=== PATIENT | female | born 1955 | race Two or more races ===

== ENCOUNTER → 2024-05-22 | Outpatient (CLI) | payer MEDICARE, BC, SELFPAY ==
[2024-05-22 14:15] LABS: Collection Type, Urine Clean Catch
[2024-05-22 14:37] LABS: Basophils # (Auto) 0.1 Thou/mm3 (0.0-0.2); Basophils % (Auto) 1 % (0-2.5); Eosinophils % (Auto) 0 % (0-10); Hemoglobin 13.9 g/dL (12.0-16.0); Immature Granulocytes % (Auto) 0 % (0-0); Immature Granulocytes Auto 0.03 Thou/mm3 (0.00-0.00); Lymphocytes # (Auto) 3.6 Thou/mm3 (1.0-4.8); Lymphocytes % (Auto) 38 % (10-50); Mean Corpuscular HGB Conc 33.1 g/dl (31.0-37.0); Mean Corpuscular Hemoglobin 30.8 pg (25.0-35.0); Mean Corpuscular Volume 93 fL (80-100); Monocytes # (Auto) 0.6 Thou/mm3 (0.0-0.8); Monocytes % (Auto) 6 % (0-12); Neutrophils # (Auto) 5.2 Thou/mm3 (1.8-7.7); Neutrophils % (Auto) 55 % (37-80); Nucleated Red Blood Cell % 0 /100 WBC (0); Platelet Count 307 Thou/mm3 (140-440); RDW Standard Deviation 45.4 fL (36.4-46.3); Red Blood Count 4.52 Miln/mm3 (4.00-5.20); White Blood Count 9.5 Thou/mm3 (3.6-11.0)
[2024-05-22 14:48] LABS: Glucose Estimated Average 103 mg/dL (80-131); Hemoglobin A1C 5.2 % Hgb (4.8-6.0)
[2024-05-22 14:50] LABS: Bacteria,Urine 4+; Bilirubin,Urine Negative (Negative); Blood,Urine 1+ (Negative); Color,Urine Yellow (Lt Yel-Yel); Glucose, Urine Negative (Negative); Ketones,Urine Negative (Negative); Leukocyte Esterase,Urine Positive (Negative); Nitrite,Urine Negative (Negative); PH,Urine 6.5 (5.0-7.0); Protein,Urine 1+ (Neg - Trace); RBC,Urine 9 /hpf (0-3); Specific Gravity,Urine 1.023 (1.001-1.035); Squamous Epithelial Cell,Urine 20 /hpf (0-5); Urobilinogen,Urine Negative mg/dL (0.0-1.0); WBC,Urine 58 /hpf (0-5)
[2024-05-22 14:51] LABS: Clarity,Urine Hazy (Clear/Hazy)
[2024-05-22 14:56] LABS: Alanine Aminotransferase 15 U/L (10-49); Albumin, Serum 4.1 gm/dL (3.4-4.8); Albumin/Globulin Ratio 1.7 (1.2-2.2); Alkaline Phosphatase 151 U/L (46-116); Anion Gap 8 (7-16); BUN/Creatinine Ratio 19 Ratio (12-20); Bilirubin,Total 0.4 mg/dL (0.3-1.2); Blood Urea Nitrogen 26 mg/dL (9-23); Calcium 10.1 mg/dL (8.3-10.6); Calcium (Corrected) 10.1 mg/dL (8.5-10.1); Carbon Dioxide 28.4 mMol/L (20.0-31.0); Cardiac Risk Estimate 3.8 RATIO (3.7-5.6); Chloride 102 mMol/L (98-107); Cholesterol 237 mg/dL (132-200); Creatinine (Component) 1.4 mg/dL (0.6-1.3); Globulin 2.4 gm/dL (2.3-3.5); Glucose 102 mg/dL (74-106); HDL Cholesterol 62 mg/dL (40-60); LDL Cholesterol,Calculated 146 mg/dL (0-130); Magnesium 1.8 mg/dL (1.6-2.6); Osmolality,Calculated 280 (275-295); Phosphorous 3.3 mg/dL (2.4-5.1); Potassium 4.4 mMol/L (3.4-5.1); Sodium 138 mMol/L (136-145); Total Protein 6.5 gm/dL (5.7-8.2); Triglycerides 144 mg/dL (30-150); eGFR 41 See Note
[2024-05-22 15:07] LABS: Aspartate Amino Transferase 12 U/L (0-34)
[2024-05-22 16:10] LABS: Sed Rate (ESR) 37 mm/hr (0-30)
== END | disposition home or self-care (01) ==
LOC: COPL 13:53
PROVIDERS: PCP Internal Medicine; Referring Provider Internal Medicine; Visit Provider Internal Medicine
DX: E03.9 Hypothyroidism, unspecified (principal); I10 Essential (primary) hypertension; E11.65 Type 2 diabetes mellitus with hyperglycemia; E78.5 Hyperlipidemia, unspecified
CPT/HCPCS: 36415; 80053; 80061; 81001; 83036; 83735; 84100; 85025; 85652

== ENCOUNTER 2024-09-04 00:40 | Emergency (ER) | payer MEDICARE, BC, SELFPAY ==
[2024-09-04] VITALS (8 sets, daily range): BP systolic 106–147; BP diastolic 49–85; PULSE 74–99; RESP 14–20; TEMP 36.6–36.8; O2SAT 93–100; BMI 40.3
--- NOTE | 2024-09-04 02:16 | PD.EDSOB ---
ED SOB =RME/HPI General Chief Complaint: Shortness of Breath/Dyspnea Stated Complaint: SOB Time Seen by Provider: 09/04/24 02:16 Arrival date/time: 09/04/24 00:40 Limitations: no limitations RME / HPI RME / HPI Narrative: Dr. Ma's Main ED Evaluation: 69yo female with a history of HTN, DM BIBA from home presents to the ED for a chief complaint of shortness of breath. Patient states she had a spinal fusion done in [place] on 08/25/24, reporting she has had shortness of breath since. She states she was discharged possible 1 week ago. Family member at bedside notes the patient's shortness of breath started today and got progressively worse throughout the day. She states the patient has had a cough since yesterday. She denies any fever, chills or any other associated symptoms. Patient has been ambulating since the surgery. Related Data Home Medications ?Medication ?Instructions ?Recorded ?Confirmed dapagliflozin propanediol 5 mg 5 mg PO QAM 03/06/22 07/05/22 tablet (Farxiga) donepezil 5 mg tablet 5 mg PO QPM 03/06/22 07/05/22 fluoxetine 40 mg capsule 40 mg PO QAM 03/06/22 07/05/22 rosuvastatin 10 mg tablet 10 mg PO QDAY 03/06/22 07/05/22 amitriptyline 100 mg tablet 100 mg PO QDAY 07/05/22 07/05/22 amlodipine 5 mg tablet 5 mg PO BID 07/05/22 07/05/22 celecoxib 200 mg capsule 200 mg PO QDAY PRN ARTHRITIC PAIN 07/05/22 07/05/22 clonidine HCl 0.1 mg tablet 0.1 mg PO BID 07/05/22 07/05/22 clonidine HCl 0.2 mg tablet 0.2 mg PO BID 07/05/22 07/05/22 hydrochlorothiazide 12.5 mg tablet 12.5 mg PO QDAY 07/05/22 07/05/22 hydrocodone 10 mg-acetaminophen 1 tab PO Q6H PRN Pain 07/05/22 07/05/22 325 mg tablet levothyroxine 100 mcg tablet 100 mcg PO QDAY 07/05/22 07/05/22 lisinopril 20 mg tablet 20 mg PO QDAY 07/05/22 07/05/22 meclizine 25 mg tablet 25 mg PO TID PRN Dizziness 07/05/22 07/05/22 metaxalone 800 mg tablet 800 mg PO BID PRN Pain 07/05/22 07/05/22 nebivolol 2.5 mg tablet 5 mg PO QDAY 07/05/22 07/05/22 nitroglycerin 0.4 mg/hr See Rx Instructions .Route .COMPLEX 07/05/22 07/05/22 transdermal 24 hour patch Allergies Allergy/AdvReac Type Severity Reaction Status Date / Time lactose Allergy Mild Diarrhea Verified 07/10/21 12:03 Review of Systems Review of Systems Systems Reviewed: All systems reviewed, normal except as documented Past Medical History Past Medical History CARDIAC: Positive Congestive Heart Failure and Hypertension RESPIRATORY: Negative Chronic Obstructive Pulmonary Disease (COPD) GENITOURINARY: Negative Renal Disease ENDOCRINE: Positive Diabetes Mellitus Type 2; Negative Diabetes Mellitus Type 1 OTHER HISTORY: Negative Blood Transfusions Social History SMOKING STATUS: Never smoker ED Exam General Limitations: Present no limitations General appearance: Present alert and in no apparent distress Head Head exam: Present atraumatic Eye Eye exam: Present normal appearance, PERRL and EOMI ENT ENT exam: Present normal exam, normal oropharynx and mucous membranes moist Neck Neck exam: Present normal inspection, full ROM and trachea midline Chest Chest inspection: Present normal inspection and symmetric chest wall rise; Absent other (crepitus) Respiratory Respiratory exam: Present wheezes Cardiovascular Cardiovascular exam: Present regular rate, normal rhythm and normal heart sounds Abdominal Exam Abdominal exam: Present soft and normal bowel sounds Extremities Exam Extremities exam: Present normal inspection and full ROM Back Exam Back exam: Present normal inspection and full ROM Neurological Exam Neurological exam: Present alert, oriented X3 and CN II-XII intact Psychiatric Psychiatric exam: Present normal affect and normal mood Skin Skin exam: Present warm, dry, intact and normal color Course Course Course Narrative: CXR is ordered for determining the etiology of shortness of breath. Quality Measures none Orders Category Date Time Status Bedside COVID-19 Antigen Test NOW Care 09/04/24 02:28 Active Bedside Influenza A&B Antigen Test NOW Care 09/04/24 02:[address] Screening NOW Care 09/04/24 05:[address] Screening NOW Care 09/04/24 05:43 Active EKG (ED ONLY) *Do not use* NOW Care 09/04/24 02:[address] angio chest Stat Exams 09/04/24 05:[address] soft tissue neck w con Stat Exams 09/04/24 05:41 Ordered CXRP [XR chest 1V portable] Stat Exams 09/04/24 02:18 Taken EKG (ED Only) Stat Exams 09/04/24 02:24 Draft BNP [B-Type Natriuretic Peptide] Stat Lab 09/04/24 02:38 Completed CBC Stat Lab 09/04/24 02:38 Completed CMP [Comprehensive Metabolic Panel] Stat Lab 09/04/24 02:38 Completed Lactic Acid [Lactate (Lactic Acid)] Stat Lab 09/04/24 02:38 Completed PT [Prothrombin Time with INR] Stat Lab 09/04/24 02:38 Completed PTT [Partial Thromboplastin Time] Stat Lab 09/04/24 02:38 Completed Procalcitonin Stat Lab 09/04/24 02:38 Completed RSV [Respiratory Syncytial Virus Ag] Stat Lab 09/04/24 02:29 Ordered Troponin I Stat Lab 09/04/24 02:38 Completed Urinalysis Stat Lab 09/04/24 02:20 Ordered Albuterol/Ipratr Rt Anisa [Duoneb Rt Anisa] Med 09/04/24 02:23 Discontinued 3 ml .ROUTE .STK-MED ONE Albuterol/Ipratr Rt Anisa [Duoneb Rt Anisa] Med 09/04/24 02:23 Discontinued 3 ml INH X1 ONE Dexamethasone Inj [Decadron Inj] Med 09/04/24 05:41 Discontinued 10 mg IVP X1 ONE Vital Signs Vital signs: Vital Signs Temperature 98.2 F 09/04/24 00:45 Pulse Rate 78 09/04/24 00:45 Respiratory Rate 20 09/04/24 00:45 Blood Pressure 106/49 L 09/04/24 00:45 Pulse Oximetry (%) 100 09/04/24 00:45 Oxygen Delivery Method Nasal Cannula 09/04/24 00:45 Oxygen Flow Rate 6 09/04/24 00:45 Shortness of Breath / Dyspnea Patient data External records reviewed:: [facility] previous records (Per chart review, patient was seen here on 07/05/22 for a fall.) Clinical information provided by:: patient and family Social determinants that could affect healthcare access:: none Patient has the following chronic illnesses:: HTN, DM How is presenting disease/condition affected by chronic disease/condition?: uneffected by Evaluation data The following diagnostics were reviewed and interpreted by me:: lab results, radiology exam(s) and EKG tracing(s) Lab and/or radiology exams considered but not ordered:: none Interpretation Summary: Bedside COVID and Influenza are negative, CBC is normal, PT and INR are normal, PTT is normal, Sodium is 131, Creatinine is 1.5, Lactic Acid is normal, Troponin is normal, BNP is normal, Procalcitonin is normal, according to my interpretation. CXR is negative for any infiltrates, pleural effusions or CHF, according to my interpretation. EKG done at 0252, NSR, rate of 77, normal axis, normal intervals, no acute ST or T-wave changes, no STEMI, according to my interpretation. Medications / Prescriptions Medications or Prescriptions considered but not ordered:: none Medication administrations:: Medication Administration History Discontinued Medications Albuterol/Ipratropium (Albuterol/Ipratropium (Duoneb) Rt Anisa 3 Ml Nebu) 3 ml INH X1 ONE Stop: 09/04/24 02:24 Last Admin: 09/04/24 02:34 Dose: 3 ml Documented By: DU Albuterol/Ipratropium (Albuterol/Ipratropium (Duoneb) Rt Anisa 3 Ml Nebu) Confirm Administered Dose 3 ml .ROUTE .STK-MED ONE Stop: 09/04/24 02:24 Dexamethasone Sodium Phosphate (Dexamethasone Sod Phos Inj 4 Mg/Ml Vial) 10 mg IVP X1 ONE; Protocol Stop: 09/04/24 05:42 see above Consultations Consultation(s) initiated? (list below): No Diagnosis Shortness of Breath Differential Diagnosis: community acquired pneumonia, pulmonary embolism and other (COVID, Influenza, viral syndrome) Most likely diagnosis given after review of the tests above:: final dx pending at sign out Admission Indicated Admission indicated?: not indicated Admission Request Was there a request for admission?: No Disposition Plan Disposition Plan: other (specify) (Signed out to Dr. Camargo at [address] soft tissue neck and CTA of the chest.) Discharge Plan Plan Disposition Comment: Stable at sign-out Prescriptions/Referrals Prescriptions/Med Rec: No Action fluoxetine 40 mg Capsule 40 mg PO QAM donepezil 5 mg Tablet 5 mg PO QPM rosuvastatin 10 mg Tablet 10 mg PO QDAY Farxiga 5 mg Tablet 5 mg PO QAM celecoxib 200 mg Capsule 200 mg PO QDAY PRN (Reason: ARTHRITIC PAIN) clonidine HCl 0.1 mg Tablet 0.1 mg PO BID lisinopril 20 mg Tablet 20 mg PO QDAY amlodipine 5 mg Tablet 5 mg PO BID hydrocodone-acetaminophen 10-325 mg Tablet 1 tab PO Q6H PRN (Reason: Pain) levothyroxine 100 mcg Tablet 100 mcg PO QDAY clonidine HCl 0.2 mg Tablet 0.2 mg PO BID nitroglycerin 0.4 mg/hr Patch 24 Hour See Rx Instructions .ROUTE .COMPLEX Rx Instructions: APPYL 1 PATH ONCE A DAY FOR 12 HOURS ON THEN OFF FOR 12 HOURS meclizine 25 mg Tablet 25 mg PO TID PRN (Reason: Dizziness) amitriptyline 100 mg Tablet 100 mg PO QDAY metaxalone 800 mg Tablet 800 mg PO BID PRN (Reason: Pain) hydrochlorothiazide 12.5 mg Tablet 12.5 mg PO QDAY nebivolol 2.5 mg Tablet 5 mg PO QDAY Referrals: Edwina Landis [Primary Care Provider] - In 1 week Problem List Clinical Impression: Breath shortness, Wheezing Patient/Caregiver Discharge Instructions Print Language: Frisian
--- NOTE | 2024-09-04 02:18 | XR_ITS ---
Examination: AP chest single view Technique one AP portable upright chest single view Exam date and time: 27/01/2025 0228 hours Comparison 03/06/2022 INDICATION: Shortness of breath again 10 days ago FINDINGS: Mild increased markings at the left lung base Right lung clear Normal heart size IMPRESSION: Suspicious for early left basilar pneumonia
--- NOTE | 2024-09-04 02:24 | EKG_ITS ---
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
[2024-09-04] MEDS: ALBUTEROL/IPRATROPIUM (Duoneb) RT SOL 3 ML NEBU INH (02:34)
[2024-09-04 02:48] LABS: Lactate (Lactic Acid) 1.3 mMol/L (0.4-2.0)
[2024-09-04 03:05] LABS: INR 0.9 (0.9-1.3); Partial Thromboplastin Time 24.7 Seconds (22.0-36.0); Prothrombin Time 10.3 Seconds (9.0-12.2)
[2024-09-04 03:22] LABS: Alanine Aminotransferase < 7 U/L (10-49); Albumin, Serum 3.5 gm/dL (3.4-4.8); Albumin/Globulin Ratio 1.3 (1.2-2.2); Alkaline Phosphatase 133 U/L (46-116); Anion Gap 9 (7-16); Aspartate Amino Transferase 17 U/L (0-34); BUN/Creatinine Ratio 15 Ratio (12-20); Basophils # (Auto) 0.1 Thou/mm3 (0.0-0.2); Basophils % (Auto) 1 % (0-2.5); Bilirubin,Total 0.2 mg/dL (0.3-1.2); Blood Urea Nitrogen 23 mg/dL (9-23); Calcium 8.5 mg/dL (8.3-10.6); Calcium (Corrected) 8.9 mg/dL (8.5-10.1); Carbon Dioxide 23.7 mMol/L (20.0-31.0); Chloride 98 mMol/L (98-107); Creatinine (Component) 1.5 mg/dL (0.6-1.3); Eosinophils % (Auto) 0 % (0-10); Estimated Creatinine Clearance 42.2 mL/min (>60); Globulin 2.6 gm/dL (2.3-3.5); Glucose 124 mg/dL (74-106); Hematocrit 29.7 % (36.0-46.0); Hemoglobin 10.3 g/dL (12.0-16.0); Immature Granulocytes % (Auto) 1 % (0-0); Immature Granulocytes Auto 0.08 Thou/mm3 (0.00-0.00); Lymphocytes # (Auto) 3.1 Thou/mm3 (1.0-4.8); Lymphocytes % (Auto) 28 % (10-50); Mean Corpuscular HGB Conc 34.7 g/dl (31.0-37.0); Mean Corpuscular Hemoglobin 31.9 pg (25.0-35.0); Mean Corpuscular Volume 92 fL (80-100); Monocytes # (Auto) 0.9 Thou/mm3 (0.0-0.8); Monocytes % (Auto) 8 % (0-12); Neutrophils # (Auto) 6.9 Thou/mm3 (1.8-7.7); Neutrophils % (Auto) 62 % (37-80); Nucleated Red Blood Cell % 0 /100 WBC (0); Osmolality,Calculated 267 (275-295); Platelet Count 296 Thou/mm3 (140-440); Procalcitonin 0.07 ng/ml (0.0-0.49); RDW Standard Deviation 44.4 fL (36.4-46.3); Red Blood Count 3.23 Miln/mm3 (4.00-5.20); Sodium 131 mMol/L (136-145); Total Protein 6.1 gm/dL (5.7-8.2); Troponin I < 0.002 ng/mL (0.0-0.045); eGFR 37 See Note
[2024-09-04 03:44] LABS: B-Type Natriuretic Peptide 86 pg/mL (0-100)
--- NOTE | 2024-09-04 05:41 | XR_ITS ---
Examination: CT soft tissue neck, with intravenous contrast. 2-D coronal reconstructions. 2-D sagittal reconstructions. Date and time of exam :August 27, 2024 0713 hours INDICATIONS: Status post laminectomy August 25, 2024 with wheezing and shortness of breath. CTDI: vol (mGy):18.4 DLP: (mGycm):657 Technique: 1.25 mm axial sections of the neck of the obtained. Coronal and sagittal reconstructions have been obtained. Intravenous contrast administered 60 cc Isovue 300. Low dose protocols were performed. One or more of the following dose reduction techniques were used; automated exposure control, adjustment of the mA and/or KV according to patient size, use of iterative reconstruction technique. Findings: Prominent right maxillary sinusitis Symmetrical nasopharynx oropharynx Normal epiglottis Mild prevertebral soft tissue swelling anterior to the cervical fusion C3-C6 No laryngeal mass No encroachment upon the subglottic region IMPRESSION: Normal epiglottis Prevertebral soft tissue at the C5-C6 level measures 14 mm No impingement upon the subglottic tracheal airway noted
--- NOTE | 2024-09-04 05:43 | XR_ITS ---
Examination: CTA chest with intravenous contrast 2-D reconstructions 3-D reconstructions, vascular Date and time of exam: September 04, 2024 at 0712 hours INDICATIONS: Wheezing and shortness of breath coughing beginning one week ago post cervical fusion CTDI: vol (mGy) 18.4 DLP: (mGycm) 657 Technique: Multiple axial sections of the thorax have been obtained. 3 mm slice thickness, from below the hemidiaphragms to above the apices of the lungs. Mediastinal and lung density settings have been obtained. 2-D sagittal and coronal reconstructions. 3-D angiographic renderings, 3-D volume renderings, 3D post processing, vascular maximum intensity projections obtained. Contrast administered is 60 cc Isovue 300. Low dose protocols were performed. One or more of the following dose reduction techniques were used; automated exposure control, adjustment of the mA and/or KV according to patient size, use of iterative reconstruction technique. Findings: No thoracic aortic aneurysmal dilatation Pulmonary artery segments are not enlarged No pulmonary artery filling defects No paratracheal tracheobronchial or bronchopulmonary adenopathy Mildly dilated bronchi in the lower lobes with a 27 mm bleb in the left lower lung zone image 228 Soft opacities in the right upper lobe Liver mildly irregular in contour Absent gallbladder Atrophic left kidney with moderate renal parenchymal scar formation Moderate osteopenia IMPRESSION: Negative for pulmonary artery emboli Mild pneumonia right upper lobe Mild right lower lobe bronchiectasis
[2024-09-04] MEDS: DEXAMETHASONE SOD PHOS INJ 4 MG/ML VIAL 10 MG IVP (06:02)
--- NOTE | 2024-09-04 06:58 | PD.EDADDENDU ---
Emergency Room Addendum Addendum Narrative: 0600: Care assumed from Dr. Ma, the previous shift emergency physician. Past medical, surgical, social and family history reviewed. Vitals and home medications reviewed. I will assume the care of the patient at this time, pending chest CTA and soft tissue neck CT reports. Please refer to the emergency department record for history and examination from initial visit.?The following addendum documentation note is intended to reflect any pending information, findings, or radiology results not included in the patient?s initial chart. EMS notes reviewed by me. Nursing notes reviewed by me. Vital signs reviewed by me. [place] medical records reviewed by me. Patient was last evaluated here on 07/05/2022 after a fall. 0900: We reviewed all the results, analysis, and treatment plans. At this time will order a Racemic Epi treatment and reassess. 1010: Second Racemic Epi treatment ordered. 1127: Symptoms improved after second treatment, will DC home. RADIOLOGY Ordering Physician: Beulah Ma MD Date of Service: 09/04/24 Procedure(s): CT soft tissue neck w con Accession Number(s): [id number] cc: Edwina Landis MD; Denis Schneider MD; Beulah Ma MD~ Examination: CT soft tissue neck, with intravenous contrast. 2-D coronal reconstructions. 2-D sagittal reconstructions. Date and time of exam :August 27, 2024 0713 hours INDICATIONS: Status post laminectomy August 25, 2024 with wheezing and shortness of breath. CTDI: vol (mGy):18.4 DLP: (mGycm):657 Technique: 1.25 mm axial sections of the neck of the obtained. Coronal and sagittal reconstructions have been obtained. Intravenous contrast administered 60 cc Isovue 300. Low dose protocols were performed. One or more of the following dose reduction techniques were used; automated exposure control, adjustment of the mA and/or KV according to patient size, use of iterative reconstruction technique. Findings: Prominent right maxillary sinusitis Symmetrical nasopharynx oropharynx Normal epiglottis Mild prevertebral soft tissue swelling anterior to the cervical fusion C3-C6 No laryngeal mass No encroachment upon the subglottic region IMPRESSION: Normal epiglottis Prevertebral soft tissue at the C5-C6 level measures 14 mm No impingement upon the subglottic tracheal airway noted Dictated By:Denis Schneider MD Signed By:<Electronically signed by Denis Schneider MD in [place]>09/04/24 0819 Ordering Physician: Beulah Ma MD Date of Service: 09/04/24 Procedure(s): CT angio chest Accession Number(s): [id number] cc: Edwina Landis MD; Denis Schneider MD; Beulah Ma MD~ Examination: CTA chest with intravenous contrast 2-D reconstructions 3-D reconstructions, vascular Date and time of exam: September 04, 2024 at 0712 hours INDICATIONS: Wheezing and shortness of breath coughing beginning one week ago post cervical fusion CTDI: vol (mGy) 18.4 DLP: (mGycm) 657 Technique: Multiple axial sections of the thorax have been obtained. 3 mm slice thickness, from below the hemidiaphragms to above the apices of the lungs. Mediastinal and lung density settings have been obtained. 2-D sagittal and coronal reconstructions. 3-D angiographic renderings, 3-D volume renderings, 3D post processing, vascular maximum intensity projections obtained. Contrast administered is 60 cc Isovue 300. Low dose protocols were performed. One or more of the following dose reduction techniques were used; automated exposure control, adjustment of the mA and/or KV according to patient size, use of iterative reconstruction technique. Findings: No thoracic aortic aneurysmal dilatation Pulmonary artery segments are not enlarged No pulmonary artery filling defects No paratracheal tracheobronchial or bronchopulmonary adenopathy Mildly dilated bronchi in the lower lobes with a 27 mm bleb in the left lower lung zone image 228 Soft opacities in the right upper lobe Liver mildly irregular in contour Absent gallbladder Atrophic left kidney with moderate renal parenchymal scar formation Moderate osteopenia IMPRESSION: Negative for pulmonary artery emboli Mild pneumonia right upper lobe Mild right lower lobe bronchiectasis Dictated By:Denis Schneider MD Signed By:<Electronically signed by Denis Schneider MD in [place]>09/04/24 0822
[2024-09-04] MEDS: EPINEPHrine RT SOL 0.5 ML NEBU INH ×2 (09:09→10:59)
[2024-09-04] MEDS: SODIUM CHLORIDE RT SOL 0.9% 3 ML NEBU INH ×2 (09:09→10:59)
[2024-09-04 10:00] LABS: Collection Type, Urine Catheter
[2024-09-04 11:36] LABS: Bilirubin,Urine Negative (Negative); Blood,Urine Negative (Negative); Clarity,Urine Clear (Clear/Hazy); Color,Urine Lt-Yellow (Lt Yel-Yel); Glucose, Urine Negative (Negative); Ketones,Urine Negative (Negative); Leukocyte Esterase,Urine Negative (Negative); Nitrite,Urine Negative (Negative); PH,Urine 5.5 (5.0-7.0); Protein,Urine Negative (Neg - Trace); RBC,Urine 25 /hpf (0-3); Specific Gravity,Urine 1.023 (1.001-1.035); Squamous Epithelial Cell,Urine 2 /hpf (0-5); Urobilinogen,Urine Negative mg/dL (0.0-1.0); WBC,Urine 1 /hpf (0-5)
== END 2024-09-04 11:40 | disposition home or self-care (01) ==
PROVIDERS: Emergency Medicine; Emergency Provider Emergency Medicine; PCP Internal Medicine
DX: J47.0 Bronchiectasis with acute lower respiratory infection (principal); J18.9 Pneumonia, unspecified organism; I11.0 Hypertensive heart disease with heart failure; Z98.1 Arthrodesis status; I50.9 Heart failure, unspecified
CPT/HCPCS: 36415; 70491; 71045; 71275; 80053; 81001; 83605; 83880; 84145; 84484; 85025; 85610; 85730; 87400; 87634; 87811; 93005; 94640; 96374; 99285; A4649; J1100; Q9967

== ENCOUNTER 2024-09-12 10:31 | Emergency (ER) | payer MEDICARE, BC, SELFPAY ==
[2024-09-12] VITALS (9 sets, daily range): BP systolic 96–132; BP diastolic 66–93; PULSE 83–107; RESP 14–21; TEMP 36.5–37.3; O2SAT 95–99; BMI 33.7
--- NOTE | 2024-09-12 11:26 | PC.NURSE ---
Pt BIBA after she states she had a ground level fall with no loss of conscious and witnessed by daughter. pt states she lives at home with daughter. Pt is GCS 15 NAD noted vitals are WNL. Pt on neck brace from sx she had done in [place] almost 1 month ago.
--- NOTE | 2024-09-12 12:01 | PD.EDCHEST ---
ED Chest Pain RME/HPI General Chief Complaint: Chest Pain Stated Complaint: CHEST PAIN Time Seen by Provider: 09/12/24 11:52 Arrival date/time: 09/12/24 10:31 69-year-old female presents to the ED via EMS with a chief complaint of ground-level fall at home. She had spinal fusion, C3-7, on August 25 and is currently wearing a c-collar. She is currently living alone. Her daughter was staying with her up until yesterday. This morning she indicates that she was walking and became dizzy, unable to remember if she felt the room spinning or if she became lightheaded. She collapsed to the ground and is complaining of left shoulder, left hip and pelvis pain. She has had a cough recently, with the cough causing pain in her chest. She states she was walking normally yesterday and had no weakness. However today she is complaining of weakness because she has not had anything to eat or drink for a long time . She indicates she has had diarrhea recently and was afraid to eat or drink anything. She denies any loss of bladder or bowel control. Mode of arrival: EMS Limitations: physical limitation Related Data Home Medications ?Medication ?Instructions ?Recorded ?Confirmed dapagliflozin propanediol 5 mg 5 mg PO QAM 03/06/22 07/05/22 tablet (Farxiga) donepezil 5 mg tablet 5 mg PO QPM 03/06/22 07/05/22 fluoxetine 40 mg capsule 40 mg PO QAM 03/06/22 07/05/22 rosuvastatin 10 mg tablet 10 mg PO QDAY 03/06/22 07/05/22 amitriptyline 100 mg tablet 100 mg PO QDAY 07/05/22 07/05/22 amlodipine 5 mg tablet 5 mg PO BID 07/05/22 07/05/22 celecoxib 200 mg capsule 200 mg PO QDAY PRN ARTHRITIC PAIN 07/05/22 07/05/22 clonidine HCl 0.1 mg tablet 0.1 mg PO BID 07/05/22 07/05/22 clonidine HCl 0.2 mg tablet 0.2 mg PO BID 07/05/22 07/05/22 hydrochlorothiazide 12.5 mg tablet 12.5 mg PO QDAY 07/05/22 07/05/22 hydrocodone 10 mg-acetaminophen 1 tab PO Q6H PRN Pain 07/05/22 07/05/22 325 mg tablet levothyroxine 100 mcg tablet 100 mcg PO QDAY 07/05/22 07/05/22 lisinopril 20 mg tablet 20 mg PO QDAY 07/05/22 07/05/22 meclizine 25 mg tablet 25 mg PO TID PRN Dizziness 07/05/22 07/05/22 metaxalone 800 mg tablet 800 mg PO BID PRN Pain 07/05/22 07/05/22 nebivolol 2.5 mg tablet 5 mg PO QDAY 07/05/22 07/05/22 nitroglycerin 0.4 mg/hr See Rx Instructions .Route .COMPLEX 07/05/22 07/05/22 transdermal 24 hour patch Allergies Allergy/AdvReac Type Severity Reaction Status Date / Time lactose Allergy Mild Diarrhea Verified 07/10/21 12:03 Past Medical History Past Medical History CARDIAC: Positive Cardiac Disorders and Hypertension; Negative Congestive Heart Failure RESPIRATORY: Positive Asthma; Negative Chronic Obstructive Pulmonary Disease (COPD) GENITOURINARY: Negative Renal Disease ENDOCRINE: Positive Diabetes Mellitus Type 2; Negative Diabetes Mellitus Type 1 HEMATOLOGIC: Negative Sickle Cell Disease OTHER HISTORY: Negative Blood Transfusions Family History FAMILY HISTORY: Negative Family Cardiac Disorders Social History SMOKING STATUS: Never smoker ED Exam General Limitations: Present physical limitation General appearance: Present alert and in no apparent distress Head Head exam: Present atraumatic and normocephalic Eye Eye exam: Present normal appearance and EOMI; Absent conjunctival injection ENT ENT exam: Present other (Whispering voice, pt stated due to anesthesia.) Neck Neck exam: Present trachea midline and other (IN CERVICAL COLLAR) Chest Chest inspection: Present normal inspection and symmetric chest wall rise; Absent tenderness Respiratory Respiratory exam: Present normal lung sounds bilaterally; Absent respiratory distress or wheezes Cardiovascular Cardiovascular exam: Present regular rate, normal rhythm, +S1 and +S2; Absent systolic murmur or diastolic murmur Abdominal Exam Abdominal exam: Present soft and normal bowel sounds; Absent tenderness, guarding or rebound Rectal Exam Rectal exam: Present deferred Extremities Exam Extremities exam: Present other (Bilateral upper and lower extremity weakness noted 2/5. Questionable effort? Able to use cell phone without difficulty.) Expanded Upper Extremity Exam Shoulder exam: Present normal inspection; Absent tenderness Arm exam: Present normal inspection; Absent tenderness Elbow exam: Present normal inspection; Absent tenderness Forearm/Wrist exam: Present normal inspection; Absent tenderness Hand exam: Present normal inspection; Absent tenderness Expanded Lower Extremity Exam Hip/Pelvis exam: Present tenderness (with pelvic rock); Absent full ROM Upper leg exam: Present other (Weakness with leg lift bilat); Absent full ROM or tenderness Knee exam: Present normal inspection; Absent tenderness Lower leg exam: Present normal inspection; Absent tenderness Ankle exam: Present normal inspection; Absent tenderness Foot/toe exam: Present normal inspection; Absent tenderness Neurovascular/Tendon exam: Absent sensory deficit Gait: not tested/not observed (Patient states she cannot walk with a fractured neck .) Back Exam Back exam: Absent straight leg raise (R) or straight leg raise (L) Neurological Exam Neurological exam: Present alert, oriented X3 and motor sensory deficit (2/5 motor weakness noted to extremities x4. No sensory deficit noted.) Psychiatric Psychiatric exam: Present anxious Skin Skin exam: Present warm, dry and intact Course Quality Measures none Orders Category Date Time Status EKG (ED ONLY) *Do not use* NOW Care 09/12/24 14:58 Completed Fingerstick [Bedside Blood Glucose] NOW Care 09/12/24 22:57 Active In and Out Catheter X1 Care 09/12/24 19:25 Completed Transfer to another facility [Transfer/Discharge] Stat Discharge 09/12/24 23:[address] cervical spine wo con Stat Exams 09/12/24 14:[address] head/brain wo con Stat Exams 09/12/24 14:54 Completed EKG (ED Only) Stat Exams 09/12/24 14:58 Draft XR chest 1V Stat Exams 09/12/24 15:15 Completed XR hip BI w pelvis 3-4V Stat Exams 09/12/24 14:54 Completed B-Type Natriuretic Peptide Stat Lab 09/12/24 15:05 Completed CBC Stat Lab 09/12/24 15:05 Completed Comprehensive Metabolic Panel Stat Lab 09/12/24 15:05 Completed LDH (Lactate Dehydrogenase) Stat Lab 09/12/24 15:05 Completed Magnesium Stat Lab 09/12/24 15:05 Completed Partial Thromboplastin Time Stat Lab 09/12/24 15:05 Completed Prothrombin Time with INR Stat Lab 09/12/24 15:05 Completed Troponin I Stat Lab 09/12/24 15:05 Completed Urinalysis Stat Lab 09/12/24 19:23 Completed Morphine Inj Med 09/12/24 23:31 Discontinued 4 mg IVP X1 ONE Sodium Chloride 0.9% 500 ml [Ns] 500 ml Med 09/12/24 23:32 Active IV 80 mls/hr Vital Signs Vital signs: Vital Signs Temperature 98.0 F 09/12/24 10:47 Pulse Rate 99 09/12/24 10:47 Respiratory Rate 16 09/12/24 10:47 Blood Pressure 132/89 H 09/12/24 10:47 Pulse Oximetry (%) 98 09/12/24 10:47 Oxygen Delivery Method Room Air 09/12/24 10:47 Chest Pain MDM Narrative MDM Narrative:: 69-year-old female presents to the ED via EMS with a chief complaint of ground-level fall at home. She had spinal fusion, C3-7, on August 25 and is currently wearing a c-collar. She is currently living alone. Her daughter was staying with her up until yesterday. This morning she indicates that she was walking and became dizzy, unable to remember if she felt the room spinning or if she became lightheaded. She collapsed to the ground and is complaining of left shoulder, left hip and pelvis pain. She has had a cough recently, with the cough causing pain in her chest. She states she was walking normally yesterday and had no weakness. However today she is complaining of weakness because she has not had anything to eat or drink for a long time . She indicates she has had diarrhea recently and was afraid to eat or drink anything. She denies any loss of bladder or bowel control. Patient data External records reviewed:: [facility] previous records Clinical information provided by:: patient Social determinants that could affect healthcare access:: none Patient has the following chronic illnesses:: Hypertension, hyperlipidemia, vertigo, hypothyroid, multiple C-spine fusions x3. How is presenting disease/condition affected by chronic disease/condition?: caused by Evaluation data The following diagnostics were reviewed and interpreted by me:: lab results, radiology exam(s) and EKG tracing(s) Lab and/or radiology exams considered but not ordered:: None Interpretation Summary: C-SPINE CT Findings: Cervical fusion with laminectomies C3-C7 with anatomic alignment Odontoid intact No cervical vertebral body compression fracture There is a fracture of the posterior spinous process C7 with minimal offset This could relate to the patient's prior surgery IMPRESSION: Extensive cervical fusion with laminectomies with anatomic alignment No cervical vertebral body compression fracture There is a fracture of the posterior spinous process C7 with minimal offset, this could relate to the patient's prior cervical spine surgery, clinical correlation is advised HEAD CT: Findings: No significant ventricular enlargement. Intra-axial or extra-axial hemorrhage density is not seen. No mass effect or midline shift Basal cisterns are not remarkable. Fourth ventricle is midline. Cranial vault intact. Impression: Negative for acute hemorrhage, mass effect or midline shift PELVIS/HIP X-RAYS: Findings: Limited study No right or left hip fracture or dislocation Bones of the pelvis intact Moderate bilateral hip osteoarthritis Impression: No acute hip or pelvic fracture CXR: Findings: Normal heart size No pneumothorax Clavicles ribs appear intact Ectatic thoracic aorta Extensive cervical orthopedic hardware Impression: No pneumothorax pulmonary contusion or hemothorax Medications / Prescriptions Medications or Prescriptions considered but not ordered:: None Medication administrations:: Medication Administration History Sodium Chloride (Ns) 500 mls @ 80 mls/hr IV .[id number] DENISE Stop: 10/12/24 23:31 Discontinued Medications Morphine Sulfate (Morphine Sulf Inj 10 Mg/Ml Vial) 4 mg IVP X1 ONE Stop: 09/12/24 23:32 No additional medications. Consultations Consultation(s) initiated? (list below): Yes Consultation #1 (Physician, Specialty, Details): Dr. Lawson PA? Dy[place]. He indicates the patient needs to have an MRI to make sure the hardware is intact. She should be transferred to [facility] or [facility]. Consultation #2 (Physician, Specialty, Details): MOY Skinner - he does not feel the patient needs to be transferred Consultation #3 (Physician, Specialty, Details): Additional Neuro Surgical PA at [facility] - Agrees with transfer from ER to ER. Diagnosis Chest Pain Differential Diagnosis: fracture of rib, pneumothorax, atypical chest pain and st elevation myocardial infarction Most likely diagnosis given after review of the tests above:: Chest wall contusion Admission Indicated Admission indicated?: indicated (Transfer from ER to ER at [facility].) Explain why admission is indicated or not indicated:: To neurosurgical PAs in [place] decayed the need for transfer to [place] for MRI imaging of the cervical spine. Admission Request Was there a request for admission?: No Disposition Plan Disposition Plan: Transfer (To [facility]) Discharge Plan Plan Patient Disposition: [facility] Pt Being Transferred to: [facility] Service Needed for Transfer: Neurosurgery Disposition Comment: STABLE Prescriptions/Referrals Prescriptions/Med Rec: No Action fluoxetine 40 mg Capsule 40 mg PO QAM donepezil 5 mg Tablet 5 mg PO QPM rosuvastatin 10 mg Tablet 10 mg PO QDAY Farxiga 5 mg Tablet 5 mg PO QAM celecoxib 200 mg Capsule 200 mg PO QDAY PRN (Reason: ARTHRITIC PAIN) clonidine HCl 0.1 mg Tablet 0.1 mg PO BID lisinopril 20 mg Tablet 20 mg PO QDAY amlodipine 5 mg Tablet 5 mg PO BID hydrocodone-acetaminophen 10-325 mg Tablet 1 tab PO Q6H PRN (Reason: Pain) levothyroxine 100 mcg Tablet 100 mcg PO QDAY clonidine HCl 0.2 mg Tablet 0.2 mg PO BID nitroglycerin 0.4 mg/hr Patch 24 Hour See Rx Instructions .ROUTE .COMPLEX Rx Instructions: APPYL 1 PATH ONCE A DAY FOR 12 HOURS ON THEN OFF FOR 12 HOURS meclizine 25 mg Tablet 25 mg PO TID PRN (Reason: Dizziness) amitriptyline 100 mg Tablet 100 mg PO QDAY metaxalone 800 mg Tablet 800 mg PO BID PRN (Reason: Pain) hydrochlorothiazide 12.5 mg Tablet 12.5 mg PO QDAY nebivolol 2.5 mg Tablet 5 mg PO QDAY Referrals: Edwina Landis MD [Primary Care Provider] - In 1 week Problem List Clinical Impression: Cervical spine fracture Patient/Caregiver Discharge Instructions Print Language: Slovak Stand Alone Forms: [facility] Award Info., Patient Portal Info Letter PA/TECHNICAL ENGINEER Supervising Physician PA/TECHNICAL ENGINEER Supervising Physician: DR. CASSIDY
--- NOTE | 2024-09-12 14:54 | XR_ITS ---
Examination: Bilateral hips, AP pelvis, 5 views Technique: AP, lateral views both hips, AP pelvis, 5 views Exam date and time: September 12, 2024 1520 hrs. Indications: Injury to the pelvis today, hip pain Findings: Limited study No right or left hip fracture or dislocation Bones of the pelvis intact Moderate bilateral hip osteoarthritis Impression: No acute hip or pelvic fracture
--- NOTE | 2024-09-12 14:54 | XR_ITS ---
Examination: CT brain head without contrast. 2-D sagittal coronal reconstructions Date and time of exam:September 12, 2024 7037 hours INDICATIONS: Patient fell today with injury to the head, head pain headache of the not true CTDI: vol (mGy):58.2 DLP: (mGycm):1232 Technique: Multiple CT axial sections of the brain have been obtained, 5 mm slice thickness. Contrast has not been administered. 2-D sagittal, coronal reconstructions have been obtained Low dose protocols were performed. One or more of the following dose reduction techniques were used; automated exposure control, adjustment of the mA and/or KV according to patient size, use of iterative reconstruction technique. Findings: No significant ventricular enlargement. Intra-axial or extra-axial hemorrhage density is not seen. No mass effect or midline shift Basal cisterns are not remarkable. Fourth ventricle is midline. Cranial vault intact. Impression: Negative for acute hemorrhage, mass effect or midline shift
--- NOTE | 2024-09-12 14:54 | XR_ITS ---
Examination: CT cervical spine without contrast 2-D sagittal reconstructions 2-D coronal reconstructions 3-D reconstructions. Exam date and time:September 12, 2024 1737 hours Comparison September 04, 2024 INDICATIONS: Patient fell today with injury of the neck, neck pain CTDI:vol (mGy) 10.4 DLP: (mGycm) 224 Technique: Multiple 2 mm axial sections of the cervical spine have been obtained. The coronal and sagittal reconstructions have been obtained. 3-D reconstructions have been obtained. Low dose protocols were performed. One or more of the following dose reduction techniques were used; automated exposure control, adjustment of the mA and/or KV according to patient size, use of iterative reconstruction technique. Findings: Cervical fusion with laminectomies C3-C7 with anatomic alignment Odontoid intact No cervical vertebral body compression fracture There is a fracture of the posterior spinous process C7 with minimal offset This could relate to the patient's prior surgery IMPRESSION: Extensive cervical fusion with laminectomies with anatomic alignment No cervical vertebral body compression fracture There is a fracture of the posterior spinous process C7 with minimal offset, this could relate to the patient's prior cervical spine surgery, clinical correlation is advised
--- NOTE | 2024-09-12 14:58 | EKG_ITS ---
[facility] (Formerly [facility]) Test Date: 2024-09-12 Pat Name: ELIEZER WATKINS Department: Room: - Gender: Female In Home Aide: : 1955 Requested By: Roshni Parker Order Number: [id number] Reading MD: Roshni Parker Measurements Intervals [place] Rate: 87 P: 64 [place]: 141 QRS: 65 QRSD: 81 T: 47 QT: 363 QTc: 437 Interpretive Statements SINUS RHYTHM NONSPECIFIC T-WAVE ABNORMALITY Compared to ECG 09/04/2024 02:52:40 T-wave abnormality now present /store/S0/[id number].pdf
[2024-09-12 15:13] LABS: Basophils # (Auto) 0.1 Thou/mm3 (0.0-0.2); Basophils % (Auto) 1 % (0-2.5); Eosinophils % (Auto) 0 % (0-10); Hematocrit 36.2 % (36.0-46.0); Hemoglobin 12.3 g/dL (12.0-16.0); Immature Granulocytes % (Auto) 1 % (0-0); Immature Granulocytes Auto 0.19 Thou/mm3 (0.00-0.00); Lymphocytes # (Auto) 3.4 Thou/mm3 (1.0-4.8); Lymphocytes % (Auto) 26 % (10-50); Mean Corpuscular Hemoglobin 31.5 pg (25.0-35.0); Mean Corpuscular Volume 93 fL (80-100); Monocytes # (Auto) 1.1 Thou/mm3 (0.0-0.8); Monocytes % (Auto) 8 % (0-12); Neutrophils # (Auto) 8.5 Thou/mm3 (1.8-7.7); Neutrophils % (Auto) 64 % (37-80); Nucleated Red Blood Cell % 0 /100 WBC (0); Platelet Count 399 Thou/mm3 (140-440); RDW Standard Deviation 45.1 fL (36.4-46.3); Red Blood Count 3.91 Miln/mm3 (4.00-5.20); White Blood Count 13.2 Thou/mm3 (3.6-11.0)
--- NOTE | 2024-09-12 15:15 | XR_ITS ---
Examination: AP chest single view Technique one AP portable supine chest single view Exam date and time: September 12, 2024, 1537 hrs. Comparison September 04, 2024 Indications: Injury to the chest today, Findings: Normal heart size No pneumothorax Clavicles ribs appear intact Ectatic thoracic aorta Extensive cervical orthopedic hardware Impression: No pneumothorax pulmonary contusion or hemothorax
[2024-09-12 15:30] LABS: B-Type Natriuretic Peptide < 20 pg/mL (0-100)
[2024-09-12 15:31] LABS: Partial Thromboplastin Time 21.9 Seconds (22.0-36.0); Prothrombin Time 10.9 Seconds (9.0-12.2)
[2024-09-12 15:32] LABS: Albumin, Serum 3.7 gm/dL (3.4-4.8); Albumin/Globulin Ratio 1.3 (1.2-2.2); Alkaline Phosphatase 132 U/L (46-116); Anion Gap 10 (7-16); Aspartate Amino Transferase 16 U/L (0-34); BUN/Creatinine Ratio 11 Ratio (12-20); Bilirubin,Total 0.4 mg/dL (0.3-1.2); Blood Urea Nitrogen 22 mg/dL (9-23); Calcium 9.2 mg/dL (8.3-10.6); Calcium (Corrected) 9.4 mg/dL (8.5-10.1); Carbon Dioxide 22.7 mMol/L (20.0-31.0); Chloride 103 mMol/L (98-107); Estimated Creatinine Clearance 27.7 mL/min (>60); Globulin 2.9 gm/dL (2.3-3.5); Glucose 97 mg/dL (74-106); LDH (Lactate Dehydrogenase) 197 U/L (120-246); Magnesium 2.1 mg/dL (1.6-2.6); Osmolality,Calculated 275 (275-295); Potassium 3.9 mMol/L (3.4-5.1); Sodium 136 mMol/L (136-145); Total Protein 6.6 gm/dL (5.7-8.2); Troponin I < 0.020 ng/mL (0.0-0.045); eGFR 27 See Note
[2024-09-12 15:43] LABS: Alanine Aminotransferase < 7 U/L (10-49)
[2024-09-12 19:27] LABS: Collection Type, Urine Clean Catch; RBC,Urine 0 /hpf (0-3)
[2024-09-12 19:59] LABS: Bilirubin,Urine 1+ (Negative); Blood,Urine Negative (Negative); Clarity,Urine Turbid (Clear/Hazy); Color,Urine Yellow (Lt Yel-Yel); Glucose, Urine Negative (Negative); Hyaline Casts,Urine < 1 /hpf (0-1); Ketones,Urine Trace (Negative); Leukocyte Esterase,Urine Positive (Negative); Nitrite,Urine Negative (Negative); PH,Urine 5.5 (5.0-7.0); Protein,Urine 1+ (Neg - Trace); Specific Gravity,Urine 1.021 (1.001-1.035); Squamous Epithelial Cell,Urine 2 /hpf (0-5); WBC,Urine 61 /hpf (0-5)
--- NOTE | 2024-09-12 20:27 | PC.NURSE ---
[address] ALBRIGHT FOR CONSULTATION. [address] ALBRIGHT.
--- NOTE | 2024-09-12 22:46 | PC.NURSE ---
PT IS ACCEPTED TO [facility] IN [place] BY DE. VARGAS. THIS IS A ER:ER TRANSFER AND NUMBER FOR REPORT NUMBER IS [phone]. [facility] WAS THE FACILITY REP I SPOKE WITH FOR ACCEPTING.
[2024-09-13] MEDS: MORPHINE SULF INJ 10 MG/ML VIAL 4 MG IVP (00:03)
[2024-09-13] MEDS: SODIUM CHLORIDE 0.9% 500 ML 500 ML 80 ML IV (00:05)
--- NOTE | 2024-09-13 00:09 | PC.NURSE ---
REPORT GIVEN TO OPAL MURPHY AT [facility].
== END 2024-09-13 00:16 | disposition short-term general hospital (02) ==
PROVIDERS: Physician Assistant; Emergency Provider Emergency Medicine; PCP Internal Medicine
DX: S12.600A Unspecified displaced fracture of seventh cervical vertebra, initial encounter for closed fracture (principal); S09.90XA Unspecified injury of head, initial encounter; S39.93XA Unspecified injury of pelvis, initial encounter; S29.9XXA Unspecified injury of thorax, initial encounter; R94.31 Abnormal electrocardiogram [ECG] [EKG]; I10 Essential (primary) hypertension; W18.30XA Fall on same level, unspecified, initial encounter; Y93.01 Activity, walking, marching and hiking; Z75.1 Person awaiting admission to adequate facility elsewhere; Z98.1 Arthrodesis status
CPT/HCPCS: 36415; 70450; 71045; 72125; 73522; 80053; 81001; 83615; 83735; 83880; 84484; 85025; 85610; 85730; 93005; 96374; 99285; J2270; J7040

== ENCOUNTER → 2024-12-07 | Outpatient (CLI) | payer MEDICARE, BC, SELFPAY ==
[2024-12-07 10:33] LABS: Quantiferon-TB* See Sep Rpt
[2024-12-07 11:39] LABS: Basophils # (Auto) 0.1 Thou/mm3 (0.0-0.2); Basophils % (Auto) 1 % (0-2.5); Eosinophils # (Auto) 0.1 Thou/mm3 (0.0-0.5); Eosinophils % (Auto) 1 % (0-10); Hematocrit 38.8 % (36.0-46.0); Hemoglobin 13.1 g/dL (12.0-16.0); Immature Granulocytes % (Auto) 0 % (0-0); Immature Granulocytes Auto 0.03 Thou/mm3 (0.00-0.00); Lymphocytes # (Auto) 3.4 Thou/mm3 (1.0-4.8); Lymphocytes % (Auto) 39 % (10-50); Mean Corpuscular HGB Conc 33.8 g/dl (31.0-37.0); Mean Corpuscular Hemoglobin 29.6 pg (25.0-35.0); Mean Corpuscular Volume 88 fL (80-100); Monocytes # (Auto) 0.5 Thou/mm3 (0.0-0.8); Monocytes % (Auto) 5 % (0-12); Neutrophils # (Auto) 4.9 Thou/mm3 (1.8-7.7); Neutrophils % (Auto) 54 % (37-80); Nucleated Red Blood Cell % 0 /100 WBC (0); Platelet Count 289 Thou/mm3 (140-440); Red Blood Count 4.43 Miln/mm3 (4.00-5.20); White Blood Count 8.9 Thou/mm3 (3.6-11.0)
[2024-12-07 11:41] LABS: Partial Thromboplastin Time 25.3 Seconds (22.0-36.0); Prothrombin Time 10.7 Seconds (9.0-12.2)
[2024-12-07 11:42] LABS: Glucose Estimated Average 111 mg/dL (80-131); Hemoglobin A1C 5.5 % Hgb (4.8-6.0)
[2024-12-07 11:46] LABS: Parathyroid Hormone Intact 119.8 pg/ml (18.5-88.0)
[2024-12-07 11:49] LABS: Alanine Aminotransferase 11 U/L (10-49); Albumin, Serum 4.3 gm/dL (3.4-4.8); Albumin/Globulin Ratio 1.5 (1.2-2.2); Alkaline Phosphatase 154 U/L (46-116); Anion Gap 9 (7-16); Aspartate Amino Transferase 17 U/L (0-34); BUN/Creatinine Ratio 13 Ratio (12-20); Bilirubin,Direct 0.1 mg/dL (0.0-0.3); Bilirubin,Total 0.5 mg/dL (0.3-1.2); Blood Urea Nitrogen 18 mg/dL (9-23); Calcium 9.5 mg/dL (8.3-10.6); Calcium (Corrected) 9.5 mg/dL (8.5-10.1); Carbon Dioxide 27.8 mMol/L (20.0-31.0); Cardiac Risk Estimate 2.1 RATIO (3.7-5.6); Chloride 104 mMol/L (98-107); Cholesterol 170 mg/dL (132-200); Creatinine (Component) 1.4 mg/dL (0.6-1.3); Free T4 (Free Thyroxine) 1.09 ng/dL (0.89-1.76); Globulin 2.9 gm/dL (2.3-3.5); Glucose 94 mg/dL (74-106); HDL Cholesterol 81 mg/dL (40-60); LDL Cholesterol,Calculated 72 mg/dL (0-130); Magnesium 1.9 mg/dL (1.6-2.6); Osmolality,Calculated 283 (275-295); Phosphorous 2.5 mg/dL (2.4-5.1); Potassium 3.6 mMol/L (3.4-5.1); Sodium 141 mMol/L (136-145); Thyroid Stimulating Hormone 5.88 uIU/mL (0.55-4.78); Total Protein 7.2 gm/dL (5.7-8.2); Triglycerides 86 mg/dL (30-150); Uric Acid 8.1 mg/dL (3.1-7.8); eGFR 41 See Note
[2024-12-07 11:50] LABS: Iron 89 mcg/dL (50-170); Percent Iron Saturation 25 % (20-55); Total Iron Binding Capacity 350 mcg/dL (250-425); Unsaturated Iron Binding 261 (225-295)
[2024-12-07 11:58] LABS: Vitamin B12 356 pg/mL (211-911)
[2024-12-14 06:43] LABS: T3 Uptake* 25 % (22-35)
== END | disposition home or self-care (01) ==
LOC: COPL 09:56
PROVIDERS: PCP Nurse Practitioner Family; Referring Provider Nurse Practitioner Family; Visit Provider Nurse Practitioner Family
DX: I10 Essential (primary) hypertension (principal); E11.65 Type 2 diabetes mellitus with hyperglycemia; E03.9 Hypothyroidism, unspecified; R29.6 Repeated falls; M19.90 Unspecified osteoarthritis, unspecified site; F33.1 Major depressive disorder, recurrent, moderate; N83.8 Other noninflammatory disorders of ovary, fallopian tube and broad ligament; M25.561 Pain in right knee; J30.2 Other seasonal allergic rhinitis; M79.671 Pain in right foot; R68.84 Jaw pain; K08.89 Other specified disorders of teeth and supporting structures; Z71.2 Person consulting for explanation of examination or test findings; Z68.36 Body mass index [BMI] 36.0-36.9, adult; I25.10 Atherosclerotic heart disease of native coronary artery without angina pectoris; B37.0 Candidal stomatitis; E78.5 Hyperlipidemia, unspecified; J02.0 Streptococcal pharyngitis; S83.242A Other tear of medial meniscus, current injury, left knee, initial encounter; M79.604 Pain in right leg; G43.919 Migraine, unspecified, intractable, without status migrainosus; Z23 Encounter for immunization; R05.1 Acute cough; H92.01 Otalgia, right ear; J32.0 Chronic maxillary sinusitis; G47.00 Insomnia, unspecified; R55 Syncope and collapse; E66.01 Morbid (severe) obesity due to excess calories; Z12.31 Encounter for screening mammogram for malignant neoplasm of breast; Z13.820 Encounter for screening for osteoporosis; M79.10 Myalgia, unspecified site; M85.89 Other specified disorders of bone density and structure, multiple sites; M54.2 Cervicalgia; Z79.4 Long term (current) use of insulin; S83.231D Complex tear of medial meniscus, current injury, right knee, subsequent encounter; N39.0 Urinary tract infection, site not specified; R42 Dizziness and giddiness; N32.81 Overactive bladder; M25.511 Pain in right shoulder; R41.3 Other amnesia; M25.551 Pain in right hip; M25.562 Pain in left knee; R10.32 Left lower quadrant pain
CPT/HCPCS: 36415; 80053; 80061; 81001; 82043; 82248; 82306; 82570; 82607; 82746; 83036; 83540; 83550; 83735; 83970; 84100; 84439; 84443; 84479; 84550; 85025; 85610; 85730; 86480

== ENCOUNTER → 2024-12-08 | Outpatient (CLI) | payer MEDICARE, BC, SELFPAY ==
[2024-12-08 16:10] LABS: Creatinine MALB Rnd Ur 75 mg/dL (30-125); Microalbumin Creat Ratio 52 mg/gCrea (<30); Microalbumin, Random Urine 39 mg/L (0-300)
== END | disposition home or self-care (01) ==
LOC: SLDO 11:28
PROVIDERS: Referring Provider Nurse Practitioner Family; Visit Provider Nurse Practitioner Family
DX: I10 Essential (primary) hypertension (principal); E11.65 Type 2 diabetes mellitus with hyperglycemia; E03.9 Hypothyroidism, unspecified; R29.6 Repeated falls; M19.90 Unspecified osteoarthritis, unspecified site; F33.1 Major depressive disorder, recurrent, moderate; N83.8 Other noninflammatory disorders of ovary, fallopian tube and broad ligament
CPT/HCPCS: 82043; 82570